=== PATIENT | male | born 1990 | race Hispanic/Latino ===

== ENCOUNTER 2024-03-17 18:32 | Emergency (ER) | payer BC, SELFPAY ==
[2024-03-17] MEDS ORDERED: predniSONE 20 MG TAB ONE (20:25)
[2024-03-17] MEDS ORDERED: Famotidine 20 MG TAB ONE (21:05)
[2024-03-17] MEDS ORDERED: diphenhydrAMINE 25 MG CAP ONE (21:05)
[2024-03-17] MEDS ORDERED: Ketorolac Tromethamine 30 MG (1 mL) VIAL ONE (21:06)
== END 2024-03-17 22:05 | disposition home or self-care (01) ==
LOC: CSHERS 18:32
DX: L25.9 Unspecified contact dermatitis, unspecified cause (principal); L73.9 Follicular disorder, unspecified; B35.3 Tinea pedis; F17.210 Nicotine dependence, cigarettes, uncomplicated
CPT/HCPCS: 96372; 99282; J1885; J7512